=== PATIENT | female | born 1960 | race Caucasian/White ===

== ENCOUNTER 2016-11-17 12:10 | Emergency (ER) | payer MEDICARE, OTHER ==
[2016-11-17 12:18] VITALS: BP 187/87; PULSE 86; RESP 18; TEMP 98.2
[2016-11-17] MEDS ORDERED: GELATIN SPONGE,ABSORB (SMALL) 1 EACH SPONGE TOPICAL STA (12:24)
[2016-11-17] MEDS ORDERED: TOPICAL SKIN ADHESIVE 1 EACH AMP TOPICAL ONE (12:24)
[2016-11-17] MEDS ORDERED: DIPH,PERTUS(ACELL)TETVAC-LF 0.5 ML VIAL IM ONE (12:24)
--- NOTE | 2016-11-17 12:28 | ED ---
Wound/Laceration HPI - General Chief Complaint: Wound/Laceration Stated Complaint: lac ring finger lt hand Time Seen by Provider: 11/17/16 12:20 Source: patient, RN notes reviewed, old records reviewed Mode of arrival: ambulatory Limitations: no limitations - History of Present Illness Initial Comments: This is a 56 showed female presents emergency Department with a laceration over her left index finger. Patient reports that she was cutting watermelon and sliced the end of her finger. Denies any nail bed involvement. She reports that she is putting ice over it and will help stop bleeding but essentially takes it starts to bleed again. Patient does not know the last time she had a tetanus shot. Denies any decreased range of motion in the finger. Patient was a laceration is very superficial just will not stop bleeding. Denies any peripheral paresthesias.Patient denies any recent fever, chills, shortness of breath, chest pain, back pain, abdominal pain, nausea vomiting, numbness or tingling, dysuria or hematuria, constipation or diarrhea, headaches or visual changes, or any other current symptoms - Related Data Home Medications Medication Instructions Recorded Confirmed Atorvastatin [Lipitor] 40 mg PO DAILY 11/17/16 11/17/16 Gabapentin [Neurontin] 300 mg PO 11/17/16 Lisinopril [Zestril] 20 mg PO DAILY 11/17/16 11/17/16 Meloxicam 15 mg PO 11/17/16 metFORMIN HCL [Glucophage Xr] 500 mg PO DAILY 11/17/16 11/17/16 Allergies Allergy/AdvReac Type Severity Reaction Status Date / Time No Known Allergies Allergy Verified 11/17/16 12:18 Review of Systems ROS Statement: Those systems with pertinent positive or pertinent negative responses have been documented in the HPI. ROS Other: All systems not noted in ROS Statement are negative. Past Medical History Past Medical History: Diabetes Mellitus, Hypertension, Osteoarthritis (OA) Additional Past Medical History / Comment(s): chronic (L) hip pain History of Any Multi-Drug Resistant Organisms: None Reported Past Surgical History: Orthopedic Surgery Past Psychological History: No Psychological Hx Reported Smoking Status: Never smoker Past Alcohol Use History: None Reported Past Drug Use History: None Reported General Exam - General Exam Comments Initial Comments: 56-year-old female. No acute distress. Limitations: no limitations General appearance: alert, in no apparent distress Head exam: Present: atraumatic, normocephalic, normal inspection Eye exam: Present: normal appearance, PERRL, EOMI. Absent: scleral icterus, conjunctival injection, periorbital swelling ENT exam: Present: normal exam, mucous membranes moist Neck exam: Present: normal inspection. Absent: tenderness, meningismus, lymphadenopathy Respiratory exam: Present: normal lung sounds bilaterally. Absent: respiratory distress, wheezes, rales, rhonchi, stridor Cardiovascular Exam: Present: regular rate, normal rhythm, normal heart sounds. Absent: systolic murmur, diastolic murmur, rubs, gallop, clicks GI/Abdominal exam: Present: soft Extremities exam: Present: normal inspection, full ROM, normal capillary refill , other (He has a less than 1 cm superficial laceration over the distal left index finger. The laceration is over the distal pad of the finger. Well approximated.). Absent: tenderness, pedal edema, joint swelling, calf tenderness Back exam: Present: normal inspection Neurological exam: Present: alert, oriented X3, CN II-XII intact Psychiatric exam: Present: normal affect, normal mood Skin exam: Present: warm, dry, intact, normal color. Absent: rash Course Vital Signs 11/17/16 12:12 Temperature 98.2 F Pulse Rate 86 Respiratory 18 Rate Blood Pressure 187/87 O2 Sat by Pulse 97 Oximetry Procedures - Laceration Laceration #1 Site: hand (Left index finger) Size (cm): 1 Description: linear Depth: simple, single layer Pre-repair: wound explored, irrigated extensively Type of Sutures: other (Dermabond) Patient Tolerated Procedure: well, no complications Medical Decision Making - Medical Decision Making This is a 56 showed female presents emergency Department with a laceration over her left index finger. Patient reports that she was cutting watermelon and sliced the end of her finger. Denies any nail bed involvement. She reports that she is putting ice over it and will help stop bleeding but essentially takes it starts to bleed again. Patient does not know the last time she had a tetanus shot. Patient will be given updated today. Patient's laceration is less than 1 cm over the left index finger. It is superficial. Laceration was thoroughly irrigated, and closed with Dermabond and then wrapped with Gelfoam. Discussed keeping the wound covered. Discussed monitoring for any sign of infection including redness swelling or drainage. Patient understands wound care instructions. Return parameters were discussed. Disposition Clinical Impression: Laceration of finger of left hand Disposition: HOME SELF-CARE Condition: Good Instructions: Skin Adhesive Care (ED) Additional Instructions: Patient has to allow the skin adhesive to fall off on its own. Monitor for any signs of infection including redness swelling or drainage. Return to emergency department if any alarming signs or symptoms occur. Referrals: Usha Akers MD [Primary Care Provider] - 1-2 days Time of Disposition: 12:38
== END 2016-11-17 12:50 | disposition home or self-care (01) ==
LOC: EC 12:10
DX: S61.211A Laceration without foreign body of left index finger without damage to nail, initial encounter (principal); E11.9 Type 2 diabetes mellitus without complications; I10 Essential (primary) hypertension; M19.90 Unspecified osteoarthritis, unspecified site; Z23 Encounter for immunization; Z79.1 Long term (current) use of non-steroidal anti-inflammatories (NSAID); Z79.84 Long term (current) use of oral hypoglycemic drugs; Z79.899 Other long term (current) drug therapy; W26.0XXA Contact with knife, initial encounter; Y93.G1 Activity, food preparation and clean up
CPT/HCPCS: 12001; 90471; 90715; 99283

== ENCOUNTER 2021-03-02 04:46 | Observation (INO) | payer MEDICARE, OTHER ==
[2021-03-02] MEDS ORDERED: SODIUM CHLORIDE 0.9% 500 ML 500 ML IV STA (05:59)
[2021-03-02] MEDS ORDERED: MORPHINE SULFATE 4 MG/ML SYRINGE IV STA (05:59)
--- NOTE | 2021-03-02 06:01 | ED ---
Abdominal Pain HPI - General Chief Complaint: Abdominal Pain Stated Complaint: Side Pain Time Seen by Provider: 03/02/21 04:48 Source: patient, RN notes reviewed, old records reviewed Mode of arrival: ambulatory Limitations: no limitations - History of Present Illness Initial Comments: This is a 61-year-old female DF for evaluation patient has been noncompliant with medications for some time now. Patient has severe left-sided abdominal pain flank pain nausea vomiting elevated blood sugar elevated blood pressure. Patient states the main reason for evaluation today is the pain abdominal pain. There is persistent with nausea and vomiting. No diarrhea no fevers. MD Complaint: abdominal pain, flank pain (Left-sided) -: hour(s) Location: LLQ, L flank Radiation: suprapubic Severity: severe Severity scale (1-10): 10 Quality: sharp Consistency: constant Improves With: nothing Worsens With: nothing Associated Symptoms: nausea, vomiting Treatments Prior to Arrival: other (none) - Related Data Previous Rx's Medication Instructions Recorded Atorvastatin [Lipitor] 40 mg PO DAILY #30 tab 03/03/21 Ibuprofen [Motrin Ib] 400 mg PO Q8H PRN #20 tab 03/03/21 amLODIPine [Norvasc] 10 mg PO DAILY 30 Days #30 tab 03/03/21 glipiZIDE [Glucotrol] 5 mg PO DAILY #30 tab 03/03/21 lisinopriL [Zestril] 20 mg PO DAILY #30 tab 03/03/21 metFORMIN HCL [Glucophage] 1,000 mg PO BID #60 tab 03/03/21 Allergies Allergy/AdvReac Type Severity Reaction Status Date / Time No Known Allergies Allergy Verified 03/02/21 09:46 Review of Systems ROS Statement: Those systems with pertinent positive or pertinent negative responses have been documented in the HPI. ROS Other: All systems not noted in ROS Statement are negative. Past Medical History Past Medical History: Diabetes Mellitus, Hypertension, Osteoarthritis (OA) Additional Past Medical History / Comment(s): chronic (L) hip pain History of Any Multi-Drug Resistant Organisms: None Reported Past Surgical History: Orthopedic Surgery Past Psychological History: No Psychological Hx Reported Smoking Status: Never smoker Past Alcohol Use History: None Reported Past Drug Use History: None Reported General Exam Limitations: no limitations General appearance: alert, in no apparent distress Head exam: Present: atraumatic, normocephalic, normal inspection Eye exam: Present: normal appearance, PERRL, EOMI. Absent: scleral icterus, conjunctival injection, periorbital swelling ENT exam: Present: normal exam, mucous membranes moist Neck exam: Present: normal inspection. Absent: tenderness, meningismus, lymphadenopathy Respiratory exam: Present: normal lung sounds bilaterally. Absent: respiratory distress, wheezes, rales, rhonchi, stridor Cardiovascular Exam: Present: regular rate, normal rhythm, normal heart sounds. Absent: systolic murmur, diastolic murmur, rubs, gallop, clicks GI/Abdominal exam: Present: soft, normal bowel sounds. Absent: distended, tenderness, guarding, rebound, rigid Extremities exam: Present: normal inspection, full ROM, normal capillary refill. Absent: tenderness, pedal edema, joint swelling, calf tenderness Back exam: Present: normal inspection Neurological exam: Present: alert, oriented X3, CN II-XII intact Psychiatric exam: Present: normal affect, normal mood Skin exam: Present: warm, dry, intact, normal color. Absent: rash Course Vital Signs 03/02/21 03/02/21 03/02/21 05:00 06:22 08:00 Temperature 98.3 F Pulse Rate 55 L 66 4 L Respiratory 18 18 18 Rate Blood Pressure 202/101 194/97 184/91 O2 Sat by Pulse 96 90 L 98 Oximetry 03/02/21 03/02/21 03/02/21 11:29 14:48 15:35 Temperature 96.9 F L Pulse Rate 81 81 Respiratory 24 Rate Blood Pressure 158/87 152/75 O2 Sat by Pulse 95 95 Oximetry 03/02/21 16:00 Temperature Pulse Rate Respiratory Rate Blood Pressure O2 Sat by Pulse 96 Oximetry - Reevaluation(s) Reevaluation #1: Medical record is reviewed Patient symptoms are significantly improved here in the emergency department Patient informed results and questions answered Medical Decision Making - Medical Decision Making 61 female with significant left sided abdominal pain left-sided kidney stone. Patient will be admitted for pain control, control blood sugar, they adjustment new medications that she has been off all medications for quite some time - Lab Data Result diagrams: 03/03/21 03:36 03/03/21 03:36 Lab Results 03/02/21 03/02/21 03/02/21 Range/Units 06:07 06:07 06:07 WBC 9.0 (3.8-10.6) k/uL RBC 4.95 (3.80-5.40) m/uL Hgb 15.6 (11.4-16.0) gm/dL Hct 46.4 H (34.0-46.0) % MCV 93.7 (80.0-100.0) fL MCH 31.5 (25.0-35.0) pg MCHC 33.6 (31.0-37.0) g/dL RDW 13.1 (11.5-15.5) % Plt Count 253 (150-450) k/uL MPV 9.3 Neutrophils % 76 % Lymphocytes % 19 % Monocytes % 3 % Eosinophils % 1 % Basophils % 1 % Neutrophils # 6.9 (1.3-7.7) k/uL Lymphocytes # 1.7 (1.0-4.8) k/uL Monocytes # 0.3 (0-1.0) k/uL Eosinophils # 0.1 (0-0.7) k/uL Basophils # 0.1 (0-0.2) k/uL PT 10.1 (9.0-12.0) sec INR 0.9 (<1.2) APTT 22.9 (22.0-30.0) sec Sodium 138 (137-145) mmol/L Potassium 4.0 (3.5-5.1) mmol/L Chloride 103 (98-107) mmol/L Carbon Dioxide 23 (22-30) mmol/L Anion Gap 12 mmol/L BUN 9 (7-17) mg/dL Creatinine 0.69 (0.52-1.04) mg/dL Est GFR (CKD-EPI)AfAm >90 (>60 ml/min/1.73 sqM) Est GFR (CKD-EPI)NonAf >90 (>60 ml/min/1.73 sqM) Glucose 334 H (74-99) mg/dL Lactic Ac Sepsis Rflx Plasma Lactic Acid David (0.7-2.0) mmol/L Calcium 8.8 (8.4-10.2) mg/dL Total Bilirubin 0.8 (0.2-1.3) mg/dL AST 39 H (14-36) U/L ALT 30 (4-34) U/L Alkaline Phosphatase 98 (38-126) U/L Troponin I (0.000-0.034) ng/mL Total Protein 7.6 (6.3-8.2) g/dL Albumin 4.4 (3.5-5.0) g/dL Amylase 51 (30-110) U/L Lipase 103 (23-300) U/L Urine Color Urine Appearance (Clear) Urine pH (5.0-8.0) Ur Specific [place] (1.001-1.035) Urine Protein (Negative) Urine Glucose (UA) (Negative) Urine Ketones (Negative) Urine Blood (Negative) Urine Nitrite (Negative) Urine Bilirubin (Negative) Urine Urobilinogen (<2.0) mg/dL Ur Leukocyte Esterase (Negative) Urine RBC (0-5) /hpf Urine WBC (0-5) /hpf Ur Squamous Epith Cells (0-4) /hpf 03/02/21 03/02/21 03/02/21 Range/Units 06:07 06:12 06:12 WBC (3.8-10.6) k/uL RBC (3.80-5.40) m/uL Hgb (11.4-16.0) gm/dL Hct (34.0-46.0) % MCV (80.0-100.0) fL MCH (25.0-35.0) pg MCHC (31.0-37.0) g/dL RDW (11.5-15.5) % Plt Count (150-450) k/uL MPV Neutrophils % % Lymphocytes % % Monocytes % % Eosinophils % % Basophils % % Neutrophils # (1.3-7.7) k/uL Lymphocytes # (1.0-4.8) k/uL Monocytes # (0-1.0) k/uL Eosinophils # (0-0.7) k/uL Basophils # (0-0.2) k/uL PT (9.0-12.0) sec INR (<1.2) APTT (22.0-30.0) sec Sodium (137-145) mmol/L Potassium (3.5-5.1) mmol/L Chloride (98-107) mmol/L Carbon Dioxide (22-30) mmol/L Anion Gap mmol/L BUN (7-17) mg/dL Creatinine (0.52-1.04) mg/dL Est GFR (CKD-EPI)AfAm (>60 ml/min/1.73 sqM) Est GFR (CKD-EPI)NonAf (>60 ml/min/1.73 sqM) Glucose (74-99) mg/dL Lactic Ac Sepsis Rflx Plasma Lactic Acid David 3.3 H* (0.7-2.0) mmol/L Calcium (8.4-10.2) mg/dL Total Bilirubin (0.2-1.3) mg/dL AST (14-36) U/L ALT (4-34) U/L Alkaline Phosphatase (38-126) U/L Troponin I 0.017 (0.000-0.034) ng/mL Total Protein (6.3-8.2) g/dL Albumin (3.5-5.0) g/dL Amylase (30-110) U/L Lipase (23-300) U/L Urine Color Yellow Urine Appearance Clear (Clear) Urine pH 5.5 (5.0-8.0) Ur Specific [place] 1.029 (1.001-1.035) Urine Protein 1+ H (Negative) Urine Glucose (UA) 4+ H (Negative) Urine Ketones 1+ H (Negative) Urine Blood Large H (Negative) Urine Nitrite Negative (Negative) Urine Bilirubin Negative (Negative) Urine Urobilinogen <2.0 (<2.0) mg/dL Ur Leukocyte Esterase Negative (Negative) Urine RBC >182 H (0-5) /hpf Urine WBC 2 (0-5) /hpf Ur Squamous Epith Cells 1 (0-4) /hpf 03/02/21 Range/Units 07:07 WBC (3.8-10.6) k/uL RBC (3.80-5.40) m/uL Hgb (11.4-16.0) gm/dL Hct (34.0-46.0) % MCV (80.0-100.0) fL MCH (25.0-35.0) pg MCHC (31.0-37.0) g/dL RDW (11.5-15.5) % Plt Count (150-450) k/uL MPV Neutrophils % % Lymphocytes % % Monocytes % % Eosinophils % % Basophils % % Neutrophils # (1.3-7.7) k/uL Lymphocytes # (1.0-4.8) k/uL Monocytes # (0-1.0) k/uL Eosinophils # (0-0.7) k/uL Basophils # (0-0.2) k/uL PT (9.0-12.0) sec INR (<1.2) APTT (22.0-30.0) sec Sodium (137-145) mmol/L Potassium (3.5-5.1) mmol/L Chloride (98-107) mmol/L Carbon Dioxide (22-30) mmol/L Anion Gap mmol/L BUN (7-17) mg/dL Creatinine (0.52-1.04) mg/dL Est GFR (CKD-EPI)AfAm (>60 ml/min/1.73 sqM) Est GFR (CKD-EPI)NonAf (>60 ml/min/1.73 sqM) Glucose (74-99) mg/dL Lactic Ac Sepsis Rflx Y Plasma Lactic Acid David (0.7-2.0) mmol/L Calcium (8.4-10.2) mg/dL Total Bilirubin (0.2-1.3) mg/dL AST (14-36) U/L ALT (4-34) U/L Alkaline Phosphatase (38-126) U/L Troponin I (0.000-0.034) ng/mL Total Protein (6.3-8.2) g/dL Albumin (3.5-5.0) g/dL Amylase (30-110) U/L Lipase (23-300) U/L Urine Color Urine Appearance (Clear) Urine pH (5.0-8.0) Ur Specific [place] (1.001-1.035) Urine Protein (Negative) Urine Glucose (UA) (Negative) Urine Ketones (Negative) Urine Blood (Negative) Urine Nitrite (Negative) Urine Bilirubin (Negative) Urine Urobilinogen (<2.0) mg/dL Ur Leukocyte Esterase (Negative) Urine RBC (0-5) /hpf Urine WBC (0-5) /hpf Ur Squamous Epith Cells (0-4) /hpf - EKG Data -: EKG Interpreted by Me (EKG is A. fib 94 QRS 94 QTC 487) - Radiology Data Radiology results: report reviewed (CT of the abdomen pelvis is positive for left-sided kidney stone), image reviewed Disposition Clinical Impression: Abdominal pain, Left ureteral stone, Hypertension, Hyperglycemia Disposition: ADMITTED IP TO THIS HOSP Condition: Fair Is patient prescribed a controlled substance at d/c from ED?: No
[2021-03-02 06:33] LABS: Basophils # (A) 0.1 k/uL (0-0.2); Basophils % (A) 1 %; Eosinophils # (A) 0.1 k/uL (0-0.7); Eosinophils % (A) 1 %; HCT 46.4 % (34.0-46.0); HGB 15.6 gm/dL (11.4-16.0); Lymphocytes # (A) 1.7 k/uL (1.0-4.8); Lymphocytes % (A) 19 %; MCH 31.5 pg (25.0-35.0); MCHC 33.6 g/dL (31.0-37.0); MCV 93.7 fL (80.0-100.0); Mean Platelet Volume 9.3; Monocytes # (A) 0.3 k/uL (0-1.0); Monocytes % (A) 3 %; Neutrophils # (A) 6.9 k/uL (1.3-7.7); Neutrophils % (A) 76 %; Platelet Count 253 k/uL (150-450); RBC 4.95 m/uL (3.80-5.40); RDW 13.1 % (11.5-15.5)
[2021-03-02 06:46] LABS: ALT 30 U/L (4-34); AST 39 U/L (14-36); African American GFR (CKD) >90 (>60 ml/min/1.73 sqM); Albumin 4.4 g/dL (3.5-5.0); Alkaline Phosphatase 98 U/L (38-126); Amylase 51 U/L (30-110); Anion Gap 12 mmol/L; Blood Urea Nitrogen 9 mg/dL (7-17); Calcium 8.8 mg/dL (8.4-10.2); Carbon Dioxide 23 mmol/L (22-30); Chloride 103 mmol/L (98-107); Glucose 334 mg/dL (74-99); Lipase 103 U/L (23-300); Non-African American GFR(CKD) >90 (>60 ml/min/1.73 sqM); Sodium 138 mmol/L (137-145); Total Bilirubin 0.8 mg/dL (0.2-1.3); Total Protein 7.6 g/dL (6.3-8.2)
[2021-03-02 06:50] LABS: INR 0.9 (<1.2); Partial Thromboplastin Time 22.9 sec (22.0-30.0); Prothrombin Time 10.1 sec (9.0-12.0)
[2021-03-02 06:59] LABS: Appearance,Urine Clear (Clear); Bilirubin,Urine Negative (Negative); Blood,Urine Large (Negative); Color,Urine Yellow; Glucose,Urine (UA) 4+ (Negative); Ketones,Urine 1+ (Negative); Leukocyte Esterase,Urine Negative (Negative); Nitrite,Urine Negative (Negative); PH, Urine 5.5 (5.0-8.0); Protein,Urine 1+ (Negative); RBC,Urine >182 /hpf (0-5); Specific Gravity,Urine 1.029 (1.001-1.035); Squamous Epithelial Cell,Urine 1 /hpf (0-4); Urobilinogen,Urine <2.0 mg/dL (<2.0); WBC,Urine 2 /hpf (0-5)
[2021-03-02] MEDS ORDERED: LABETALOL SYRINGE 5 MG/ML IVP STA (07:24)
--- NOTE | 2021-03-02 07:26 | CT ---
EXAMINATION TYPE: CT abdomen pelvis wo con DATE OF EXAM: 03/02/2021 HISTORY: Abd pain. Left flank pain. CT DLP: 1442.4 mGycm. Automated Exposure Control for Dose Reduction was Utilized. TECHNIQUE: CT scan of the abdomen and pelvis is performed without oral or IV contrast. COMPARISON: NONE FINDINGS: Within the limitations of a non-contrast study, the following observations are made. LUNG BASES: Cholecystectomy clips. Liver size upper limits of normal. Mild extra hepatic biliary dila tation. No significant intrahepatic biliary dilatation. Gradual tapering towards the ampulla without calculus. Correlation with old outside CT or MRI would be beneficial to determine if chronic finding. LIVER/GB: No significant abnormality is appreciated. PANCREAS: No significant abnormality is seen. SPLEEN: Mild splenomegaly of 14.2 cm long axis axial image 41.. ADRENALS: No significant abnormality is seen. KIDNEYS: There are 2 tiny left renal calculi measuring up to 2 mm in size midpole level coronal image 60. There is 2 mm calcification, suspect proximal ureter calculus though there is some motion artifa ct degradation coronal image 55 as there is asymmetric mild left-sided hydronephrosis. No right-sided renal calculi or hydronephrosis. No intraluminal calculi in the bladder. Scattered pelvic phlebolith s. Asymmetric mild left-sided perinephric fat stranding BOWEL: Diverticula in the left and sigmoid colon and scattered throughout remainder of colon. No CT e vidence for acute diverticulitis. Incidental normal-appearing appendix in the right lower quadrant. GENITAL ORGANS: Uterus surgically absent. Scattered bilateral pelvic phleboliths. LYMPH NODES: No greater than 1cm abdominal or pelvic lymph nodes are appreciated. OSSEOUS STRUCTURES: Moderate disc space narrowing with vacuum disc phenomenon lumbosacral junction. M oderate anterior spurring. Prominent facet arthropathy lower lumbar spine. OTHER: No significant additional abnormality is seen. IMPRESSION: There is 2 mm proximal left ureter calculus causing mild left-sided hydronephrosis.
[2021-03-02] MEDS ORDERED: MORPHINE SULFATE 4 MG/ML SYRINGE IV PRN (07:28)
[2021-03-02] MEDS ORDERED: LORazepam 2 MG/ML INJ IV PRN (07:28)
[2021-03-02] MEDS ORDERED: NALOXONE 0.4 MG/ML 1 ML VIAL IV PRN (07:28)
[2021-03-02] MEDS ORDERED: ONDANSETRON 4 MG/2 ML VIAL IVP PRN (07:28)
[2021-03-02] MEDS ORDERED: hydrALAZINE HCL 20 MG/ML 1 ML VIAL IVP PRN (11:20)
[2021-03-02] MEDS: amLODIPine 10 MG TAB PO SCH (11:36)
[2021-03-02] MEDS: glipiZIDE 5 MG TAB PO SCH (11:36)
[2021-03-02] MEDS: lisinopriL 20 MG TAB PO SCH (11:36)
[2021-03-02] MEDS: PANTOPRAZOLE 40 MG/10 ML VIAL IV SCH (11:42)
[2021-03-02 14:41] LABS: Glucose,Whole Blood 117 mg/dL (75-99)
[2021-03-02] MEDS: SODIUM CHLORIDE 0.9% 1,000 ML IV SCH ×2 (14:45→22:00)
[2021-03-02] MEDS ORDERED: HYDROcodone/APAP 5-325MG 1 EACH TAB PO PRN (17:13)
[2021-03-02] MEDS ORDERED: TEMAZEPAM 15 MG CAP PO PRN (17:13)
[2021-03-02 17:26] LABS: Glucose,Whole Blood 124 mg/dL (75-99)
[2021-03-02] MEDS: INSULIN ASPART (NovoLOG) 100 UNIT/ML VIAL SQ SCH ×2 (17:43→22:01)
[2021-03-02] MEDS: metFORMIN 500 MG TAB PO SCH (17:58)
[2021-03-02] MEDS ORDERED: KETOROLAC 30 MG/ML 1 ML VIAL IVP PRN (19:13)
--- NOTE | 2021-03-02 19:18 | P.GSCN ---
History of Present Illness Consult date: 03/02/21 History of present illness: this is a 61-year-old female admitted to the hospital with left-sided flank pain. She underwent a CT scan on presentation that showed evidence of left- sided hydronephrosis with stranding around the kidney. There was a questionable 2 mm left-sided ureteral stone. Denies any previous history of kidney stones. Denies any dysuria or gross hematuria. Denies any fevers chills, the pain is associated with nausea denies any vomiting. No previous similar episodes. Review of Systems - Constitutional Denies fever, Denies weight loss - EENT Ears, nose, mouth and throat: Denies dysphagia - Respiratory Denies cough, Denies 7 - Gastrointestinal Reports abdominal pain, Reports nausea - Integumentary Denies rash, Denies unusual bruising - Neurological Denies headaches, Denies syncope Past Medical History Past Medical History: Diabetes Mellitus, Hypertension, Osteoarthritis (OA) Additional Past Medical History / Comment(s): chronic (L) hip pain History of Any Multi-Drug Resistant Organisms: None Reported Past Surgical History: Orthopedic Surgery Past Psychological History: No Psychological Hx Reported Smoking Status: Never smoker Past Alcohol Use History: None Reported Past Drug Use History: None Reported Medications and Allergies Home Medications Medication Instructions Recorded Confirmed Type Atorvastatin [Lipitor] 40 mg PO DAILY 11/17/16 03/02/21 History lisinopriL [Zestril] 20 mg PO DAILY 11/17/16 03/02/21 History Ibuprofen [Motrin Ib] 400 mg PO Q8H PRN 03/02/21 03/02/21 History glipiZIDE [Glucotrol] 5 mg PO DAILY 03/02/21 03/02/21 History metFORMIN HCL [Glucophage] 1,000 mg PO BID 03/02/21 03/02/21 History Allergies Allergy/AdvReac Type Severity Reaction Status Date / Time No Known Allergies Allergy Verified 03/02/21 09:46 Surgical - Exam Vital Signs Temp Pulse Resp BP Pulse Ox 98.3 F 55 L 18 202/101 96 03/02/21 05:00 03/02/21 05:00 03/02/21 05:00 03/02/21 05:00 03/02/21 05:00 - General no distress, moderate pain - Eyes normal ocular movement, no loss of movement - ENT normal nares, normal mucosa - Respiratory normal expansion, normal respiratory effort - Abdomen Abdomen: soft, non tender - Psychiatric oriented to time, oriented to person, oriented to place Results - Labs 03/02/21 06:07 03/02/21 06:07 Abnormal Lab Results - Last 24 Hours (Table) 03/02/21 03/02/21 03/02/21 Range/Units 06:07 06:07 06:12 Hct 46.4 H (34.0-46.0) % Glucose 334 H (74-99) mg/dL POC Glucose (mg/dL) (75-99) mg/dL Plasma Lactic Acid David (0.7-2.0) mmol/L AST 39 H (14-36) U/L Urine Protein 1+ H (Negative) Urine Glucose (UA) 4+ H (Negative) Urine Ketones 1+ H (Negative) Urine Blood Large H (Negative) Urine RBC >182 H (0-5) /hpf 03/02/21 03/02/21 03/02/21 Range/Units 06:12 11:03 14:35 Hct (34.0-46.0) % Glucose (74-99) mg/dL POC Glucose (mg/dL) 117 H (75-99) mg/dL Plasma Lactic Acid David 3.3 H* 3.8 H* (0.7-2.0) mmol/L AST (14-36) U/L Urine Protein (Negative) Urine Glucose (UA) (Negative) Urine Ketones (Negative) Urine Blood (Negative) Urine RBC (0-5) /hpf 03/02/21 Range/Units 17:24 Hct (34.0-46.0) % Glucose (74-99) mg/dL POC Glucose (mg/dL) 124 H (75-99) mg/dL Plasma Lactic Acid David (0.7-2.0) mmol/L AST (14-36) U/L Urine Protein (Negative) Urine Glucose (UA) (Negative) Urine Ketones (Negative) Urine Blood (Negative) Urine RBC (0-5) /hpf Diabetes panel 03/02/21 Range/Units 06:07 Sodium 138 (137-145) mmol/L Potassium 4.0 (3.5-5.1) mmol/L Chloride 103 (98-107) mmol/L Carbon Dioxide 23 (22-30) mmol/L BUN 9 (7-17) mg/dL Creatinine 0.69 (0.52-1.04) mg/dL Glucose 334 H (74-99) mg/dL Calcium 8.8 (8.4-10.2) mg/dL AST 39 H (14-36) U/L ALT 30 (4-34) U/L Alkaline Phosphatase 98 (38-126) U/L Total Protein 7.6 (6.3-8.2) g/dL Albumin 4.4 (3.5-5.0) g/dL Calcium panel 03/02/21 Range/Units 06:07 Calcium 8.8 (8.4-10.2) mg/dL Albumin 4.4 (3.5-5.0) g/dL Pituitary panel 03/02/21 Range/Units 06:07 Sodium 138 (137-145) mmol/L Potassium 4.0 (3.5-5.1) mmol/L Chloride 103 (98-107) mmol/L Carbon Dioxide 23 (22-30) mmol/L BUN 9 (7-17) mg/dL Creatinine 0.69 (0.52-1.04) mg/dL Glucose 334 H (74-99) mg/dL Calcium 8.8 (8.4-10.2) mg/dL Adrenal panel 03/02/21 Range/Units 06:07 Sodium 138 (137-145) mmol/L Potassium 4.0 (3.5-5.1) mmol/L Chloride 103 (98-107) mmol/L Carbon Dioxide 23 (22-30) mmol/L BUN 9 (7-17) mg/dL Creatinine 0.69 (0.52-1.04) mg/dL Glucose 334 H (74-99) mg/dL Calcium 8.8 (8.4-10.2) mg/dL Total Bilirubin 0.8 (0.2-1.3) mg/dL AST 39 H (14-36) U/L ALT 30 (4-34) U/L Alkaline Phosphatase 98 (38-126) U/L Total Protein 7.6 (6.3-8.2) g/dL Albumin 4.4 (3.5-5.0) g/dL Assessment and Plan Assessment: 61-year-old female admitted to the hospital with left-sided hydronephrosis, questionable 2 mm left-sided proximal stone. Reviewed the CT I could not clearly see a ureteral stone, but given the hydronephrosis and the pain this cannot be ruled out. On evaluation patient still uncomfortable -We'll start Toradol 30 mg every 6 for her pain -Continue IV hydration -If pain improved tomorrow okay for discharge from urology standpoint if persist might require retrograde pyelogram possible ureteral stent
--- NOTE | 2021-03-02 19:46 | HP ---
HISTORY AND PHYSICAL DATE OF SERVICE: 03/02/2021 CHIEF COMPLAINT: Abdominal pain. HISTORY OF PRESENT ILLNESS: This 61-year-old woman with a past medical history of diabetes, hypertension, history of DJD, history of chronic left hip pain, being followed by Dr. Rivero in the outpatient setting, was complaining of severe back pain on the left side which was radiating to the groin area suggestive of nephrolithiasis and the patient was given some pain medication. Blood pressure is also found to be elevated and patient admitted to the hospital for further evaluation and treatment. A CT scan of the abdomen and pelvis was done in the ER which was reviewed personally by me showed evidence of 2 mm proximal left ureter calculus showing with mild left-sided hydronephrosis also. There is no history of fever, rigors, chills at this time. PAST MEDICAL HISTORY: History of diabetes, hypertension, history of DJD, chronic left hip pain. MEDICATIONS: Prior to admission home medications are: Metformin 1000 mg p.o. b.i.d., Zestril, Glucotrol, Motrin, Lipitor. Doses reviewed. ALLERGIES: None. FAMILY HISTORY: No history of heart disease or strokes in the family. SOCIAL HISTORY: No history of smoking. No history of alcohol. REVIEW OF SYSTEMS: ENT: No diminished vision. No diminished hearing. CARDIOVASCULAR: No angina or palpitations. RESPIRATION: No cough or hemoptysis. GI as mentioned earlier. as mentioned earlier. NERVOUS SYSTEM: No numbness or weakness. ALLERGY/IMMUNOLOGY: No asthma or hayfever. MUSCULOSKELETAL as mentioned earlier. HEMATOLOGY/ONCOLOGY: No history of anemia. ENDOCRINE: As mentioned earlier. CONSTITUTIONAL: As mentioned earlier. DERMATOLOGY: Negative. RHEUMATOLOGY: Negative. PSYCHIATRIC: As mentioned earlier. PHYSICAL EXAMINATION: Alert and oriented times three. Pulse 81, blood pressure 152/75, respirations 24, temperature 98.9, pulse ox 95% on 2 L. HEENT: Conjunctivae normal. NECK: No JVD. CARDIOVASCULAR: S1, S2 muffled. RESPIRATORY: Breath sounds diminished in the bases. No rhonchi. No crackles. ABDOMEN: Soft, mild diffuse tenderness in the left flank area, left anterior part of the abdomen. No guarding. No rigidity. No mass palpable. No ascites. LEGS are no edema. No swelling. NERVOUS SYSTEM: Higher functions as mentioned earlier. Moves all four limbs. No focal motor or sensory deficits. LYMPHATICS: No lymph nodes palpable in the neck, axillae or groin. JOINTS: No active deforming arthropathy. LABS: CBC within normal limits. Sodium 130. Potassium 4, glucose is 334. Otherwise, Covid 19 is negative. Lactic acid is elevated at 3.8, improved to 1.6. ASSESSMENT: 1. Severe left flank pain with possibly ureterolithiasis with 2 cm proximal left ureteral calculus causing mild left-sided hydronephrosis. 2. Diabetes mellitus type 2 uncontrolled with hyperglycemia. 3. Elevated lactic acid, possibly secondary to dehydration. Present on admission. 4. History of diabetes type 2. 5. Hypertension. 6. History of degenerative joint disease. 7. History of chronic left hip pain. 8. Obesity with body mass index of 45.1. 9. FULL CODE. RECOMMENDATIONS AND DISCUSSION: This 61-year-old woman who presented with multiple complex medical issues, we will monitor the patient closely, continue the current medications, management and symptomatic treatment. Continue the pain medications. Blood pressure medication has been adjusted. Urology consultation. Monitor blood sugars closely. Accu-Cheks before meals and at bedtime. Repeat labs in the morning. Continue with hydration, IV 0.9 at 100 mL/hour. DVT prophylaxis. Overall prognosis guarded because of multiple complex medical issues. Further recommendations to follow. MMODL / IJN: [id number] /
[2021-03-02 21:57] LABS: Glucose,Whole Blood 163 mg/dL (75-99)
[2021-03-02] MEDS: HEPARIN SODIUM,PORCINE/PF 5,000 UNIT/0.5 ML SYRINGE SQ SCH (22:01)
[2021-03-02 22:04] VITALS: TEMP 97.7
[2021-03-03 04:27] LABS: Basophils % (A) 0 %; Eosinophils # (A) 0.1 k/uL (0-0.7); Eosinophils % (A) 1 %; HCT 42.2 % (34.0-46.0); Lymphocytes # (A) 1.9 k/uL (1.0-4.8); Lymphocytes % (A) 27 %; MCH 31.2 pg (25.0-35.0); MCHC 33.3 g/dL (31.0-37.0); MCV 93.9 fL (80.0-100.0); Mean Platelet Volume 8.4; Monocytes # (A) 0.3 k/uL (0-1.0); Monocytes % (A) 4 %; Neutrophils # (A) 4.6 k/uL (1.3-7.7); Neutrophils % (A) 66 %; Platelet Count 209 k/uL (150-450); RDW 13.6 % (11.5-15.5)
[2021-03-03 08:07] LABS: Glucose,Whole Blood 190 mg/dL (75-99)
[2021-03-03] MEDS: SODIUM CHLORIDE 0.9% 1,000 ML IV SCH (08:32)
[2021-03-03] MEDS: INSULIN ASPART (NovoLOG) 100 UNIT/ML VIAL SQ SCH ×2 (08:33→12:59)
[2021-03-03] MEDS: glipiZIDE 5 MG TAB PO SCH (08:34)
[2021-03-03] MEDS: metFORMIN 500 MG TAB PO SCH (08:34)
[2021-03-03] MEDS: PANTOPRAZOLE 40 MG/10 ML VIAL IV SCH (08:34)
[2021-03-03] MEDS: amLODIPine 10 MG TAB PO SCH (08:34)
[2021-03-03] MEDS: lisinopriL 20 MG TAB PO SCH (08:34)
[2021-03-03] MEDS: HEPARIN SODIUM,PORCINE/PF 5,000 UNIT/0.5 ML SYRINGE SQ SCH (08:34)
[2021-03-03] MEDS ORDERED: ATORVASTATIN 40 MG TAB PO SCH (09:00)
[2021-03-03 11:02] LABS: Magnesium 1.8 mg/dL (1.5-2.4); Phosphorus 3.4 mg/dL (2.4-5.1)
[2021-03-03 11:48] LABS: Albumin 3.6 g/dL (3.8-4.9); Albumin/Globulin Ratio 1.89 (1.60-3.17); Anion Gap 10.9 mmol/L (10.00-18.00); BUN/Creat Ratio 10.89 Ratio (12.00-20.00); Blood Urea Nitrogen 9.8 mg/dL (9.0-27.0); Calcium 7.8 mg/dL (8.7-10.3); Carbon Dioxide 24.1 mmol/L (20.0-27.5); Globulin 1.9 g/dL (1.6-3.3); Potassium 3.5 mmol/L (3.5-5.5); Total Bilirubin 0.6 mg/dL (0.30-1.20); Total Protein 5.5 g/dL (6.2-8.2)
[2021-03-03 12:42] LABS: Glucose,Whole Blood 128 mg/dL (75-99)
[2021-03-03 13:36] VITALS: BP 150/85; PULSE 79; RESP 18
--- NOTE | 2021-03-03 14:27 | P.PN ---
Subjective Progress Note Date: 03/03/21 No acute overnight events, left flank pain has resolved. Denies any nausea or vomiting Objective - Vital Signs Vital signs: Vital Signs Temp 97.7 F 03/03/21 12:40 Pulse 79 03/03/21 12:40 Resp 18 03/03/21 12:40 BP 150/85 03/03/21 12:40 Pulse Ox 93 L 03/03/21 12:40 Intake & Output 03/02/21 03/03/21 03/03/21 18:59 06:59 18:59 Intake Total 1000 Balance 1000 Weight 115.575 kg Intake: Intake, IV Titration 1000 Amount Sodium Chloride 0.9% 1, 1000 000 ml @ 100 mls/hr IV . Q10H [facility] Rx#:[id number] Other: # Voids 1 - Labs CBC & Chem 7: 03/03/21 03:36 03/03/21 03:36 Labs: Abnormal Lab Results - Last 24 Hours (Table) 03/02/21 03/02/21 03/02/21 Range/Units 14:35 17:24 21:55 BUN/Creatinine Ratio (12.00-20.00) Ratio Glucose (70-110) mg/dL POC Glucose (mg/dL) 117 H 124 H 163 H (75-99) mg/dL Calcium (8.7-10.3) mg/dL Total Protein (6.2-8.2) g/dL Albumin (3.8-4.9) g/dL 03/03/21 03/03/21 03/03/21 Range/Units 03:36 07:58 12:35 BUN/Creatinine Ratio 10.89 L (12.00-20.00) Ratio Glucose 164 H (70-110) mg/dL POC Glucose (mg/dL) 190 H 128 H (75-99) mg/dL Calcium 7.8 L (8.7-10.3) mg/dL Total Protein 5.5 L (6.2-8.2) g/dL Albumin 3.6 L (3.8-4.9) g/dL Assessment and Plan Assessment: 61-year-old female admitted to the hospital with left-sided hydronephrosis, questionable 2 mm left-sided proximal stone. Reviewed the CT I could not clearly see a ureteral stone, but given the hydronephrosis and the pain this cannot be ruled out. Pain resolved this a.m. -Okay for discharge from your standpoint -Follow as an outpatient in 4 weeks, will obtain a renal ultrasound prior to follow
--- NOTE | 2021-03-08 12:25 | P.DS ---
Providers Date of admission: 03/02/21 07:28 Expected date of discharge: 03/03/21 Attending physician: Lakeshia Coombs Consults: 03/02/21 12:55 Consult Physician Stat Consulting Provider: Gregorio Gaines Consult Reason/Comments: kidney stone Do you want consulting provider notified?: Yes Primary care physician: Usha Akers MD Hospital Course: Final diagnosis Severe left flank pain with possible ureterolithiasis with 2cm proximal left ureteral calculus causing mild left-side hydronephrosis diabetes mellitus type 2 uncontrolled with hyperglycemia Elevated lactic acid, possible secondary to dehydration, present on admission hypertension history of djd hisorty of chronic left hip pain obesity with a bmi of 45.1 full code Discharge disposition Patient is being discharged in a stable condition with guarded prognosis to home. Patient will follow-up with Dr. Rivero in the outpatient setting upon discharge. Patient to also follow up with urology in one week. Total time taken is greater than 35 minutes. Hospital course This is a 61 year old female who was admitted with possible kidney stones. Patient was followed closely with urology and will follow up closely outpatient. Patient was maintained on IV abx during hospitalization and IV hydration. Patient abdominal pain resolved. Patient requesting to go home. Currently no reports of chest pain, palpitations, or shortness of breath. Patient is afebrile. No reports of nausea or vomiting noted. Patient tolerating diet. Patient will be discharged home today. Physical examination: Gen: Patient is awake, alert and oriented 3, well-developed, well-nourished. HEENT: Head is atraumatic, normocephalic. Pupils equal, round. Sclerae is anicteric. NECK: Supple. No JVD. No lymphadenopathy. No thyromegaly. LUNGS: Diminished breath sounds bilaterally with no wheezing or rhonchi noted. No intercostal retractions. HEART: S1, S2 are muffled ABDOMEN: Soft. Obese. Bowel sounds are present. No masses. No tenderness. EXTREMITIES: No pedal edema. No calf tenderness. NEUROLOGICAL: Patient is awake, alert and oriented x3. Cranial nerves 2 through 12 are grossly intact. no focal deficits Please refer to medication reconciliation sheet for a list of medications. Patient Condition at Discharge: Fair Plan - Discharge Summary New Discharge Prescriptions: New amLODIPine [Norvasc] 10 mg PO DAILY 30 Days #30 tab Continue metFORMIN HCL [Glucophage] 1,000 mg PO BID #60 tab Atorvastatin [Lipitor] 40 mg PO DAILY #30 tab lisinopriL [Zestril] 20 mg PO DAILY #30 tab glipiZIDE [Glucotrol] 5 mg PO DAILY #30 tab Ibuprofen [Motrin Ib] 400 mg PO Q8H PRN #20 tab PRN Reason: Pain Discharge Medication List Atorvastatin [Lipitor] 40 mg PO DAILY #30 tab 03/03/21 [Rx] Ibuprofen [Motrin Ib] 400 mg PO Q8H PRN #20 tab 03/03/21 [Rx] amLODIPine [Norvasc] 10 mg PO DAILY 30 Days #30 tab 03/03/21 [Rx] glipiZIDE [Glucotrol] 5 mg PO DAILY #30 tab 03/03/21 [Rx] lisinopriL [Zestril] 20 mg PO DAILY #30 tab 03/03/21 [Rx] metFORMIN HCL [Glucophage] 1,000 mg PO BID #60 tab 03/03/21 [Rx] Follow up Appointment(s)/Referral(s): Usha Akers MD [Primary Care Provider] - 1-2 days Guru Portillo MD [STAFF PHYSICIAN] - 1 Week Activity/Diet/Wound Care/Special Instructions: Activity Limited until follow-up Follow-up with primary care provider on discharge Continue with fluids Follow-up with urology outpatient Continue current diet Discharge Disposition: HOME SELF-CARE
== END 2021-03-03 14:47 | disposition home or self-care (01) ==
LOC: EC 04:46 → 1SOBS 07:28 → 6NMEDSUR 11:40 → 5NMEDONC 20:28
PROVIDERS: ADMIT Hospitalist; ATTEND Hospitalist
DX: R10.32 Left lower quadrant pain (principal); N13.2 Hydronephrosis with renal and ureteral calculous obstruction; E11.65 Type 2 diabetes mellitus with hyperglycemia; R79.89 Other specified abnormal findings of blood chemistry; E86.0 Dehydration; I10 Essential (primary) hypertension; M19.90 Unspecified osteoarthritis, unspecified site; G89.29 Other chronic pain; M25.552 Pain in left hip; E66.9 Obesity, unspecified; Z68.42 Body mass index [BMI] 45.0-49.9, adult; Z91.14 Patient's other noncompliance with medication regimen; M54.9 Dorsalgia, unspecified; Z20.822 Contact with and (suspected) exposure to COVID-19; Z79.899 Other long term (current) drug therapy; Z79.84 Long term (current) use of oral hypoglycemic drugs
CPT/HCPCS: 96376 ×2; 96361 ×2; 96372; 96374; 96375; 99285; 36415; 80053 ×2; 82150; 83605; 83690 ×2; 83735; 84100; 84484; 85025 ×2; 85610; 85730; 81001; 87635; 74176; G0378 ×4; J2060; J2270; C9113 ×2; J1644

== ENCOUNTER → 2021-05-01 | Outpatient (CLI) | payer MEDICARE, OTHER ==
--- NOTE | 2021-05-16 11:53 | MM ---
Reason for exam: additional evaluation requested from prior study. Last mammogram was performed 3 years ago. History: Patient is nulliparous. Family history of breast cancer in mother and breast cancer in maternal aunt. Physical Findings: Nurse summary: 1cm nodule in the right breast at 10 o'clock (nurse ms). MG Diagnostic Mammo w CAD MACARIO Bilateral CC and MLO view(s) were taken. LM view(s) were taken of the right breast. CC with magnification and MLO with magnification view(s) were taken of the left breast. Prior study comparison: May 12, 2018, mammogram, performed at [facility]. April 30, 2017, mammogram, performed at [facility]. April 09, 2016, mammogram, performed at [facility]. The breast tissue is heterogeneously dense. This may lower the sensitivity of mammography. Multiple clustered groups of calcifications consistent with skin moles an within the cutaneous layer. These results were verbally communicated with the patient on 05/16/21. ASSESSMENT: Incomplete: need additional imaging evaluation, BI-RAD 0 Incomplete: need additional imaging evaluation, BI-RAD 0 of the right breast. Benign, BI-RAD 2 finding in the left breast. RECOMMENDATION: Ultrasound of the right breast. Manage patient on a clinical basis.
--- NOTE | 2021-05-17 11:33 | USB ---
Reason for exam: additional evaluation requested from abnormal screening. History: Patient is nulliparous. Family history of breast cancer in mother and breast cancer in maternal aunt. US Breast Limited RT Right limited breast ultrasound including focal area of concern, retroareolar and axilla demonstrates a 0.5 x 0.3 x 0.4cm lesion at 10 o'clock palpable and a 0.6 x 0.5 x 0.6cm lesion at 10 o'clock. Suggestive of two asses at the 10 o'clock B/C area. Tissue biopsy recommended. These results were verbally communicated with the patient 05/16/21. ASSESSMENT: Suspicious, BI-RAD 4 RECOMMENDATION: Ultrasound core biopsy of the right breast. Called Dr. Akers office with mammographic findings. Biopsy scheduled for 05/24/21 at 10:30. PRELIMINARY REPORT CALLED AND FAXED TO DR. AKERS ON 05/17/21
== END | disposition home or self-care (01) ==
LOC: RADMAMWWP 12:39
PROVIDERS: ATTEND Internal Medicine
DX: R92.8 Other abnormal and inconclusive findings on diagnostic imaging of breast (principal)
CPT/HCPCS: 77066

== ENCOUNTER → 2021-05-24 | Day surgery (SDC) | payer MEDICARE, OTHER ==
[2021-05-24 09:37] VITALS: RESP 18
[2021-05-24 10:36] VITALS: BP 135/83; PULSE 79
[2021-05-24 10:37] VITALS: TEMP 97.9
--- NOTE | 2021-05-24 11:00 | USB ---
EXAMINATION TYPE: US biopsy breast VAD RT DATE OF EXAM: 05/24/2021 CLINICAL HISTORY: N63 Lump. 05/01/2021 TECHNIQUE: Ultrasound guided core biopsy of right breast. COMPARISON: NONE FINDINGS: The procedure of ultrasound guided core biopsy was explained to the patient. Benefits, alternatives, and risks were discussed. An informed consent was then obtained. The patient was placed in supine positioning for imaging and for the procedure. The overlying skin was prepped and draped in usual sterile fashion. Lidocaine buffered with bicarbonate was used as anesthetic into the skin and subcutaneous tissue up to area of concern in the right breast. A vickie was made with surgical scalpel. Under ultrasound guidance, a 12-gauge vacuum assisted biopsy gun device was used to obtain 4 core samples. Following this, a biopsy clip was left in lesion. The patient tolerated the procedure well without any immediate complication. The patient was kept in the radiology department for short stay after the procedure and then discharged home in stable condition. IMPRESSION: Successful, uncomplicated ultrasound guided core biopsy of area of concern in the right breast, full pathology results to follow. Note is made that there was only a single lesion at the 10:00 position and therefore only a single biopsy was formed. Note is also made that the cystic component of the lesion was no longer seen post biopsy. Pathology Results: Benign RIGHT BREAST, 10:00, ULTRASOUND GUIDED CORE BIOPSY: Benign breast and adipose tissue with fibrosis/scar, fat necrosis, and chronic inflammation and hemorrhage. Recommendation Follow up mammogram of the right breast in 6 months. TIFFANIED
--- NOTE | 2021-05-24 11:10 | MM ---
Reason for exam: additional evaluation requested from abnormal screening. Last mammogram was performed 1 month ago. History: Patient is nulliparous. Family history of breast cancer in mother and breast cancer in maternal aunt. MG Diagnostic Mammo RT Wo CAD CC and LM view(s) were taken of the right breast. Prior study comparison: May 01, 2021, bilateral MG diagnostic mammo w CAD MACARIO. May 12, 2018, mammogram, performed at [facility]. ASSESSMENT: Post procedure mammogram for marker placement RECOMMENDATION: Ultrasound of the right breast in 6 months. PENDING PATHOLOGY RESULTS.
== END ==
LOC: RADUSWWP 09:06
PROVIDERS: ATTEND Internal Medicine
DX: N64.1 Fat necrosis of breast (principal); N60.31 Fibrosclerosis of right breast; R92.8 Other abnormal and inconclusive findings on diagnostic imaging of breast
CPT/HCPCS: 88305; 77065; 19083; A4648; J2001